=== PATIENT | male | born 1985 | race African-American/Black ===

== ENCOUNTER 2017-01-05 12:00 | Inpatient (IN) | payer MEDICAID ==
[~2017-01-05] VITALS: Ht 172.7 cm; Wt 89.6 kg
[2017-01-05] MEDS ORDERED: METHYLPREDNISOLONE SOD SUCC 125 MG/2 ML VIAL IV STA (12:22)
[2017-01-05] MEDS ORDERED: IPRATROPIUM BROMIDE (0.02%) 0.5MG/2.5ML NEB HHN STA ×3 (12:22→16:36)
[2017-01-05] MEDS ORDERED: ALBUTEROL (0.083%) 2.5MG/3ML NEB HHN STA ×3 (12:22→16:36)
[2017-01-05] MEDS ORDERED: MAGNESIUM 2 G PREMIX 50 ML IV ONE (12:30)
[2017-01-05 15:17] LABS: HEMATOCRIT. 45.9 % (42.0-52.0); HEMOGLOBIN. 15.8 g/dL (14.0-18.0); MEAN CORPUSCULAR HEMOGLOBIN 28.2 pg (28.0-32.0); MEAN CORPUSCULAR VOLUME 82.2 fL (80.0-94.0); MEAN PLATELET VOLUME 8.8 fl (7.4-10.4); PLATELET 191 x1000/uL (130-400); RED BLOOD CELL COUNT 5.59 mill/uL (4.7-6.1); RED CELL DISTRIBUTION WIDTH 14.9 % (11.6-14.6)
[2017-01-05 15:31] LABS: CARBON DIOXIDE 26 mEq/L (21-32); CHLORIDE 102 mEq/L (98-107)
[2017-01-05 18:10] LABS: PLATELET ESTIMATE NORMAL
[2017-01-05 21:30] VITALS: BP 136/80
[2017-01-05 22:14] VITALS: BP 136/86
[2017-01-06] MEDS ORDERED: MORPHINE SULFATE 2 MG/ML CPJ (NOT FOR IM USE) IV PRN (00:15)
[2017-01-06] MEDS ORDERED: ALBUTEROL (0.5%) 2.5MG/0.5ML NEB HHN PRN (00:15)
[2017-01-06] MEDS ORDERED: LEVOFLOXACIN 500MG PREMIX 100 ML IV SCH ×2 (00:15→02:00)
[2017-01-06 00:24] VITALS: BP 114/64
[2017-01-06 04:00] VITALS: BP 108/62
[2017-01-06] MEDS: METHYLPREDNISOLONE SOD SUCC 40 MG/ML VIAL IV SCH ×2 (05:49→12:27)
[2017-01-06 06:42] LABS: HEMOGLOBIN. 14.6 g/dL (14.0-18.0); MEAN CORPUSCULAR HEMOGLOBIN 27.2 pg (28.0-32.0); MEAN CORPUSCULAR VOLUME 82.1 fL (80.0-94.0); MEAN PLATELET VOLUME 9.3 fl (7.4-10.4); PLATELET 210 x1000/uL (130-400); RED BLOOD CELL COUNT 5.35 mill/uL (4.7-6.1); RED CELL DISTRIBUTION WIDTH 14.9 % (11.6-14.6)
[2017-01-06 07:23] LABS: CARBON DIOXIDE 25 mEq/L (21-32); CHLORIDE 103 mEq/L (98-107)
[2017-01-06 08:00] VITALS: BP 112/70
[2017-01-06] MEDS ORDERED: INFLUENZA VIRUS VACCINE 0.5ML SYR IM ONE (09:00)
[2017-01-06] MEDS ORDERED: PNEUMOCOCCAL 23-VAL P-SAC VAC 0.5 ML IM ONE (09:00)
[2017-01-06] MEDS ORDERED: ENOXAPARIN 30MG/0.3ML SYR SUBCUT SCH (09:00)
[2017-01-06 12:00] VITALS: BP 137/78
[2017-01-06 13:33] LABS: PLATELET ESTIMATE NORMAL
[2017-01-06 14:15] VITALS: BP 137/78
== END 2017-01-06 14:45 | disposition home or self-care (01) | DRG 133 ==
LOC: ER 12:00 → 6WST 16:57 → ENRESERV 19:44
PROVIDERS: ADMIT Hospitalist; ATTEND Hospitalist
DX: J96.20 Acute and chronic respiratory failure, unspecified whether with hypoxia or hypercapnia (principal); J45.902 Unspecified asthma with status asthmaticus; E87.1 Hypo-osmolality and hyponatremia
CPT/HCPCS: 36415; 71010; 80048; 80053; 85025; 90686; 90732; 93005; 94640; 94644; 94664; 96365; 96375; 99285; J1650; J1956; J2920; J2930; J3475; J7050; J7611